=== PATIENT | male | born 1950 | race Caucasian/White ===

== ENCOUNTER 2025-04-03 11:33 | Outpatient (AMB) | payer MEDICARE, OTHER, SELFPAY ==
--- NOTE | 2025-04-03 12:04 | MHC.OFFVIS ---
Intake Visit Reasons: 6 Month LBD Allergies benazepril Allergy (Unknown, Verified 04/01/25 11:03) Unknown Penicillins Allergy (Unknown, Verified 04/01/25 11:03) Unknown HPI Comments Details: 75 yo RH man with HTN, CAD, and dementia, probably with Lewy bodies type, and parkinsonism. He recently was in emergency room when he call 911. He was found to have significant urinary retention an enlarged prostate. Now he has a Spaulding's catheter and was being treated for prostate hypertrophy. [facility] Medical History (Updated 04/03/25 @ 12:09 by Jennifer Wang MD) Dementia with Lewy bodies Review of Systems Const Details: No significant hallucinations or delusions. Sometime he was having kicking type of movements at night but not too disturbing. Physical Exam Neuro Other: Mental Status: Alert and awake with slightly decreased spontaneity and fluency of speech. He had difficulty remembering what he had for dinner last night. Cranial Nerves: CN II: Visual hanna full to confrontation, visual acuity intact. CN III, IV, : Pupils equal, round, reactive to light and accommodation. Extraocular movements are normal. CN V: Facial sensation is normal. CN VII: Facial movements symmetrical. CN VIII: Hearing intact to bedside conversation is normal. CN IX, X: Palate elevates symmetrically. CN XI: Shoulder shrug and head turn symmetrical. CN XII: Tongue midline without atrophy or fasciculations. Extrapyramidal: Facial expression blinking were diminished. Moderate generalized bradykinesia. Moderate bilateral upper extremity cogwheeling rigidity. He was walking in his slow paced cautious gait with decreased arm swing. Speech: Normal; no dysarthria or tremor. Assessment & Plan Assessment & Plan (1) Dementia with Lewy bodies: Code(s): G31.83 - Neurocognitive disorder with Lewy bodies; F02.80 - Dementia in other diseases classified elsewhere, unspecified severity, without behavioral disturbance, psychotic disturbance, mood disturbance, and anxiety Category: Medical Qualifiers: Dementia severity: moderate Dementia behavioral or psychological symptom: without behavioral, psychotic, or mood disturbance or anxiety Qualified Code(s): G31.83 - Neurocognitive disorder with Lewy bodies; F02.B0 - Dementia in other diseases classified elsewhere, moderate, without behavioral disturbance, psychotic disturbance, mood disturbance, and anxiety Plan Impression: Moderately severe probably dementia with Lewy body disease with moderate parkinsonism and behavioral disorder Recommendations: Carbidopa/levodopa 25/100 tid Memantine 10 mg once a day Sertraline 25 mg in the morning Quetiapine 50 mg 1 at bedtime Trazodone 50 mg half to 1 at bedtime Coding Level of Care Code Est Pt Level 4 (22071) Diagnoses Moderate Lewy body dementia without behavioral disturbance, psychotic disturbance, mood disturbance, or anxiety G31.83; F02.B0 Dementia severity: moderate Dementia behavioral or psychological symptom: without behavioral, psychotic, or mood disturbance or anxiety
== END 2025-04-03 12:13 | disposition home or self-care (01) ==
LOC: HO.HSM 11:33
PROVIDERS: PCP Nurse Practitioner Gerontology; Referring Provider Nurse Practitioner Gerontology; Visit Provider Psychiatry & Neurology Neurology
DX: G31.83 Neurocognitive disorder with Lewy bodies (principal); F02.B0 Dementia in other diseases classified elsewhere, moderate, without behavioral disturbance, psychotic disturbance, mood disturbance, and anxiety
CPT/HCPCS: 99214

== ENCOUNTER → 2025-04-03 11:33 | Outpatient (BNVA) | payer MEDICARE, SELFPAY | PROVIDERS: PCP Nurse Practitioner Gerontology; Referring Provider Nurse Practitioner Gerontology; Visit Provider Psychiatry & Neurology Neurology | DX: G31.83 Neurocognitive disorder with Lewy bodies (principal); F02.B0 Dementia in other diseases classified elsewhere, moderate, without behavioral disturbance, psychotic disturbance, mood disturbance, and anxiety | CPT/HCPCS: 99212 ==